=== PATIENT | female | born 1975 | race Caucasian/White ===

== ENCOUNTER 2018-05-31 10:11 | Emergency (ER) | payer SELFPAY ==
[2018-05-31 11:57] LABS: HEMATOCRIT 37.7 % (37.0-47.0); HEMOGLOBIN 11.9 g/dl (12.0-16.0); IMMATURE GRANULOCYTES 0.4 % (0.0-5.0); MEAN CELL VOLUME 89.5 fL CALC (80.0-100.0); MEAN CORPUSCULAR HGB 28.3 pG CALC (26.0-32.0); MEAN CORPUSCULAR HGB CONC 31.6 g/L CALC (32.0-36.0); NEUT# 8.1 thou/uL (2.00-7.15); RED BLOOD COUNT 4.21 mill/uL (4.20-5.60); RED CELL DISTRI WIDTH 13.7 % (11.5-15.5)
[2018-05-31] MEDS ORDERED: MEDDOSEPAK PO (14:15)
[2018-05-31] MEDS ORDERED: TORADOL PO (14:15)
[2018-05-31] MEDS ORDERED: FLEXERIL PO (14:15)
[2018-05-31] MEDS ORDERED: ULTRAM50 MG PO (14:15)
[2018-05-31 14:47] VITALS: BP 144/88
== END 2018-05-31 15:21 | disposition home or self-care (01) | DRG 558 ==
LOC: ED 10:11
PROVIDERS: Emergency Medicine
DX: M75.31 Calcific tendinitis of right shoulder (principal)
CPT/HCPCS: J2060